=== PATIENT | male | born 2000 | race Two or more races ===

== ENCOUNTER 2022-03-25 17:36 | Emergency (ER) | payer SELFPAY ==
[~2022-03-25] VITALS: Ht 172.7 cm; Wt 63.0 kg
[2022-03-25 18:20] VITALS: BP 146/91
== END 2022-03-25 18:11 | disposition left against medical advice (07) ==
LOC: ER 17:36
DX: Z04.1 Encounter for examination and observation following transport accident (principal); Z53.29 Procedure and treatment not carried out because of patient's decision for other reasons; V89.2XXA Person injured in unspecified motor-vehicle accident, traffic, initial encounter; Y93.89 Activity, other specified; Y92.89 Other specified places as the place of occurrence of the external cause; Y99.8 Other external cause status